=== PATIENT | male | born 1985 | race Two or more races ===

== ENCOUNTER 2022-01-13 07:06 | Emergency (ER) | payer SELFPAY ==
[~2022-01-13] VITALS: Ht 182.9 cm; Wt 106.3 kg
[2022-01-13] MEDS ORDERED: KETOROLAC TROMETH 60MG/2ML VIAL IM ONE (08:00)
[2022-01-13 08:15] VITALS: BP 140/83
[2022-01-13] MEDS ORDERED: IBUP800T27 PO (08:39)
== END 2022-01-13 08:52 | disposition home or self-care (01) ==
LOC: ER 07:06
DX: M70.52 Other bursitis of knee, left knee (principal)
CPT/HCPCS: 73562; 96372; 99283; J1885